=== PATIENT | male | born 1980 | race Caucasian/White ===

== ENCOUNTER 2019-08-30 19:46 | Emergency (ER) | payer MEDICAID, SELFPAY ==
[2019-08-30 19:59] VITALS: BP 177/98; PULSE 92; RESP 20; O2SAT 96
--- NOTE | 2019-08-30 20:09 | DI.RAD_ITS ---
EXAM: XR CHEST 2V PA LATERAL INDICATION: chest pain. COMPARISON: No exams were available for comparison TECHNIQUE: 2D digital imaging was performed. FINDINGS: The heart size is normal. The lungs are reasonably well inflated and clear. No infiltrate, effusio n or pneumothorax is seen. The spine appears intact as visualized. IMPRESSION: Negative chest x-ray
--- NOTE | 2019-08-30 20:09 | ED.GENADUL_ITS ---
Discharge Plan Disposition Patient Disposition: HOME Condition: Stable Discharge Details Chief Complaint: Chest Pain Clinical Impression: Chest pain Primary Care Provider: Alba Virgen ED Provider: To Swenson Discharge Instructions Instructions: Chest Pain (ED) Additional Instructions: follow up with your primary care provider this week and discuss having stress testing if you have worsening pain, pain that is constant, shortness of breath that is worsening or feel more ill return to the emergency department Medical Decision Making 39 yo male who rach chronic medical problems though doesn't see any provider regularly and nonsmoker comes in with one month of dyspnea on exertion and intermittent chest tightness, denies any pain or discomfort now. Denies fevers, chills, abd pain. HE arrives in no distress speaking in full sentences. He has no rashes, clear lungs, no muffled heart sounds and no edema. HIs heart score is 1, will obtain troponin. WElls score is low and perc negative so doubt PE. Will obtain xray to eval for pna. HAs no tearing back pain and normal vascular exam so doubt dissection pt remains asymptomatic, xray and labs unremarkable. Given his low heart score feel he is stable for d/c. HE understands he needs to f/u with his pcp and return precautions given Differential Diagnosis Differential Diagnosis: copd, cad, pneumonia Medical Records Medical records reviewed: Yes I reviewed the patient's medical records. Imaging Data Radiologic Study: Attestation: I personally reviewed and interpreted this imaging study as follows: Imaging: X-Ray Radiologist's impression: no acute findings Lab Data Lab results reviewed: Yes I reviewed the patient's lab results. ECG Data Attestation: I personally reviewed and interpreted this ECG (s) as follows: Prior ECG tracings: not available for review Interpretation: sinus rhyth, rate of 86, pr 148 HPI General Mode of arrival: ambulatory . Date/Time Provider Initiated Documentation: 08/30/19 20:05 . Limitations to Documentation: no limitations . Information obtained by: patient . History of Present Illness 39 year old M presents to the emergency department with the chief complaint of chest pain, described as moderate, and it has been intermittent. No relieving factors improve symptom(s), No exacerbating factors reported . Patient did receive the following treatments prior to arrival, none Related Data Allergies Allergy/AdvReac Type Severity Reaction Status Date / Time No Known Allergies Allergy Unverified 03/11/13 14:57 General Stated Complaint: Chest Pain LARISSA: 3 Review of Systems All systems reviewed & are unremarkable except as noted in HPI and below Constitutional Constitutional: Denies chills, Denies fever(s) and Denies weakness Respiratory Respiratory: Denies cough Gastrointestinal Gastrointestinal: Denies abdominal pain, Denies nausea and Denies vomiting Genitourinary Genitourinary: Denies dysuria Musculoskeletal Musculoskeletal: Denies joint swelling Integumentary/Breasts Skin/Breast: Denies rash Neurologic Neurologic: Denies weakness Psychiatric Psychiatric: Denies depression [facility] Social History Smoking/Tobacco Use Status: Never Substance use type: marijuana Exam Const General: no acute distress Orientation: alert HENMT Head: normal to inspection Ears: external ears normal General nose exam: external nose normal Mouth: moist mucous membranes Eyes General: appearance normal, both eyes and all related structures Neck Neck: normal visual inspection Resp Effort & Inspection: normal respiratory effort and able to speak in complete sentences Cardio Rate: regular rate Skin General skin exam: no rashes or lesions noted Neuro General: alert and oriented x3 Extrem General: normal to inspection Psych Mental Status: mental status grossly normal Course Vital Signs Vital signs: Vital Signs Pulse 92 H 08/30/19 19:59 Respiratory Rate 20 08/30/19 19:59 Blood Pressure 177/98 H 08/30/19 19:59 Pulse Oximetry 96 08/30/19 19:59 Pulse 92 H 08/30/19 19:59 Respiratory Rate 20 08/30/19 19:59 Respiratory Effort 08/30/19 20:04 Blood Pressure 177/98 H 08/30/19 19:59 Blood Pressure Position Sitting 08/30/19 19:59 Pulse Oximetry 96 08/30/19 19:59 Oxygen Delivery Method Room Air 08/30/19 19:59 Oxygen Flow Rate 0 08/30/19 19:59 Pain Level 3 08/30/19 19:59
[2019-08-30 20:12] VITALS: RESP 16
--- NOTE | 2019-08-30 20:15 | NUR.NOTE ---
Nursing Note:Lab at bedside for blood draw
[2019-08-30 20:26] LABS: Abs Immature Grans 0.02 k/cumm (0.0-0.09); Absolute Basophil Count 0.01 k/cumm (0.0-0.2); Absolute Eosinophil Count 0.13 k/cumm (0.0-0.7); Absolute Lymphocyte Count 2.38 k/cumm (1.2-3.4); Absolute Monocyte Count 0.65 k/cumm (0.11-0.7); Absolute Neutrophil Count 4.76 k/cumm (1.2-6.7); Basophils % 0.1; Eosinophils % 1.6; HCT 42.9 % (40.0-50.0); HGB 15.1 g/dL (13.5-17.5); Immature Grans % 0.3; Lymphocytes % 29.9; Mean Corp. HGB Concentration 35.2 g/dL (32.0-36.0); Mean Corpuscular Hemoglobin 31.4 pg (27.0-33.0); Mean Corpuscular Volume 89.2 fL (80-95); Monocytes % 8.2; Neutrophils % 59.9; Platelet Count 233 x1000/uL (130-400); RBC 4.81 m/cumm (4.50-6.00); RBC Distribution Width 13.1 % (11.8-14.1); White Blood Cell Count 7.95 k/cumm (4.4-10.8)
--- NOTE | 2019-08-30 20:47 | NUR.NOTE ---
Nursing Note:Patient resting in bed. No further c/o pain. Waiting lab results
[2019-08-30 20:50] LABS: ALT 52 U/L (16-63); AST 17 U/L (15-37); Alkaline Phosphatase 82 U/L (46-116); Anion Gap 9.3 mmol/L (3-11); BUN 26 mg/dL (7-18); Bilirubin, Total 0.3 mg/dL (0.2-1.0); CO2 25.7 mmol/L (21.0-32.0); CREATININE 1.15 mg/dL (0.70-1.30); Calcium 9.4 mg/dL (8.5-10.1); Chloride 105 mmol/L (98-107); Glucose 125 mg/dL (70-100); Potassium 3.9 mmol/L (3.5-5.1); Sodium 140 mmol/L (136-145); Total Protein 7.7 g/dL (6.4-8.2)
[2019-08-30 20:57] LABS: Troponin I < 0.05 ng/mL (0.00-0.06)
--- NOTE | 2019-08-30 21:31 | DI.VRAD_ITS ---
PROCEDURE INFORMATION: Exam: XR Chest, 2 Views Exam date and time: 08/30/2019 8:09 PM Clinical history: 39 years old, male; Other: Chest pain TECHNIQUE: Imaging protocol: XR of the chest Views: 2 views. COMPARISON: No relevant prior studies available. FINDINGS: The lung rosales are clear bilaterally. No focal pulmonary consolidation is present. The cardiac silhouette is within normal limits. The costophrenic angles are sharp. The bony structures appear unremarkable. IMPRESSION: No evidence of acute cardiopulmonary disease. Dictated and Authenticated by: Dennis Presley MD. Ordering:TIMOTHY Ariza MD
[2019-08-30 22:10] VITALS: BP 165/125; PULSE 87; RESP 16; O2SAT 95
== END 2019-08-30 22:15 | disposition home or self-care (01) ==
PROVIDERS: Emergency Provider Emergency Medicine; PCP Family Medicine
DX: R07.9 Chest pain, unspecified (principal)
CPT/HCPCS: 36415; 80053; 93005; 99285; 71046; 83735; 84484; 85025; 93010

== ENCOUNTER 2019-11-07 17:52 | Emergency (ER) | payer MEDICAID, SELFPAY ==
[2019-11-07 18:07] VITALS: BP 179/95; PULSE 90; RESP 16; TEMP 37; O2SAT 95
--- NOTE | 2019-11-07 18:15 | ED.GENADUL_ITS ---
Discharge Plan Disposition Patient Disposition: HOME Condition: Fair Discharge Details Chief Complaint: EyeProblem Clinical Impression: Conjunctivitis Primary Care Provider: Alba Virgen ED Provider: Charlene Blanchard Home Meds and New Rx's Prescriptions: New amoxicillin-pot clavulanate [Augmentin] 875-125 mg tablet 1 tab PO BID Qty: 12 RF: 0 Continued lisinopril 10 mg Tablet 20 mg PO DAILY RF: 0 Discharge Instructions Instructions: Amoxicillin/Clavulanate Potassium (By mouth), Erythromycin (Into the eye), Olopatadine (Into the eye), Conjunctivitis (ED) Additional Instructions: Encourage water intake. You may use warm compresses to the eye. Please wash this with baby shampoo to keep the eye clean. Please take the Augmentin as prescribed for infection. You should apply the erythromycin ointment into the left eye 5 times daily. The Patanol drops should be instilled into your eye 2 times daily. Please call your curriculum facilitator on Saturday. If you are unable to be seen by them, [place] [facility] [place] soon as possible, . If you develop fever/chills, pain, discharge or other new/worsening symptoms please seek care urgently once again. Referrals: Alba Virgen MD [Primary Care Provider] - Medical Decision Making Patient is a pleasant 39 year old male presenting today with c/c of left eye injection, swelling and itching. STates that discomfort began over the left TMJ 2 days ago. Yesterday, he noted injection and itchign to the eye. This then greatly progressed this morning. He denies any pain in the eye itself. No fevers/chills. Denies trauma. No knwn exposure. States he has been traveling recently and staying in [employer] hotels. No foreign travel. States that his vision has been slightly blurry, this sounds to be associated with tearing as it is not persistent. Does not wear contact, no eye glasses. See curriculum facilitator in [place], [place]. On exam, patient has notable injection of the left eye. The left upper lid is erythematous and swollen. No fluctuance. No pain with palpation. EOM intact. PUpils are equal, round and reactive. Chemosis is noted, particularly inferiorly. Tearing but no purulent discharge. No pain over the TMJ, full ROM. No palpable lymphadenopathy. While the patient appears nontoxic, he has fairly dramatic involvement of the left eye. I am concerned about deeper structural involvement as the pain started at the left TMJ. His exam does not have outward evidence of abscess, periorbital cellulitis, dental infection, globe trauma. He has no eye pain making diagnosis of increased ocular pressure highly unlikely. Vision 20/25. With this unusual presentation, plan for labs and imaging. Labs reviewed and no signficant abnormaliites are noted. CT reviewed b y radiologist: FINDINGS: No abnormal fluid collections. Minimal shotty cervical adenopathy. No mass identified. Bony structures intact. No significant paranasal sinus disease. IMPRESSION: No specific etiology identified for the patient's symptoms Discussed these findings with the patient. Patient was evaluated by Dr. Galicia. His symptoms are most consistent with allergic reaction versus conjunctivitis. While he does not have a large amount of purulent discharge, given the appearance of his eye I would like aggressive treatment for this patient. Will use erythromycin ointment, Patanol eyedrops as well as oral Augmentin. Patient does have a an curriculum facilitator that he sees in [facility], have asked that he call them on Saturday to schedule follow-up for that day. If he is unable to get in with them on Saturday, he [place] [facility] He was given strict return precautions. He was given first dosing of his medications, sent home with meds for this evening. All of his quesitons and concerns were addressed, he is in agreement iwth this plan. HPI General Mode of arrival: ambulatory . Date/Time Provider Initiated Documentation: 11/07/19 18:12 . Limitations to Documentation: no limitations . Information obtained by: patient and RN notes reviewed . History of Present Illness 39 year old M presents to the emergency department with the chief complaint of left eye swelling and erythema, described as moderate, with intensity rated at 1 (denies any pain, endorses itching). Quality is described as other, and is localized to the eyes. Patient reports no radiation. Patient started experiencing this day(s) (1) and it has been constant. No relieving factors improve symptom(s), No exacerbating factors reported . Patient notes rash (erythema to left upper lid); denies chest pain, cough, diaphoresis, fever/chills, headaches, nausea/vomiting and shortness of breath. Patient did receive the following treatments prior to arrival, none Related Data Home Medications Medication Instructions Recorded Confirmed amoxicillin-pot clavulanate 1 tab PO BID #12 tab 11/07/19 [Augmentin] lisinopril 20 mg PO DAILY 11/07/19 11/07/19 Previous Rx's Medication Instructions Recorded amoxicillin-pot clavulanate 1 tab PO BID #12 tab 11/07/19 [Augmentin] Allergies Allergy/AdvReac Type Severity Reaction Status Date / Time No Known Allergies Allergy Unverified 03/11/13 14:57 General Stated Complaint: EyeProblem LARISSA: 3 Review of Systems Constitutional Constitutional: Reports as per HPI, Denies chills, Denies fatigue, Denies fever(s) and Denies headache(s) Eyes Eyes: Reports as per HPI ENT Ears, Nose, Mouth, and Throat: Denies headache(s) Cardiovascular Cardiovascular: Reports as per HPI, Denies chest pain and Denies lightheadedness Respiratory Respiratory: Denies cough Integumentary/Breasts Skin/Breast: Reports as per HPI, Denies rash, Denies skin pain and Denies skin swelling Neurologic Neurologic: Denies headache(s) and Denies radicular pain Endocrine Endocrine: Denies fatigue [facility] Social History Smoking/Tobacco Use Status: Never Alcohol Intake: current Alcohol Intake frequency: a few times a month Substance use type: marijuana Do you feel safe at home: Yes Do you feel safe in your relationship?: Yes Exam Const General: cooperative, healthy appearing, comfortable, no acute distress, well developed and well groomed Nutritional Appearance: well nourished and obese Orientation: alert, awake and oriented x3 [facility]: normal to inspection, normocephalic and atraumatic Ears: hearing grossly normal bilaterally, external ears normal and TM's normal bilaterally General nose exam: external nose normal and nares normal Face and sinus: normal facial exam, sinuses nontender and face symmetric Mouth: oral mucosae normal, lip normal, tongue normal, oropharynx normal, moist mucous membranes, normal lip, No mouth trauma, no muffled voice, normal tongue, No abnormal TMJ, no trismus and No restricted motion Teeth and gingiva: dentition normal and gingiva normal Throat: posterior oropharynx normal, tonsils normal and uvula midline Eyes General: appearance abnormal, both eyes Visual Rosales: normal visual rosales by confrontation Alignment and Position: alignment normal and position normal Periorbital: periorbital findings normal Eyelids: eyelid abnormality left upper eyelid erythema and swelling; without inflamed cysts, no crusting or scaling of lid margins and nontender Conjunctivae: conjunctival abnormality left conjunctival chemosis and conjunctival injection diffuse; without discharge and without pallor Pupils: PERRL, normal by confrontation and accommodation normal EOM: EOM intact bilaterally Direct ophthalmoscopy: normal light reflex Neck Neck: normal visual inspection, no lymphadenopathy, no meningeal signs, trachea midline and supple Resp Effort & Inspection: normal respiratory effort, able to speak in complete sentences and no respiratory distress Auscultation: clear to auscultation bilaterally Cardio Rate: regular rate Rhythm: regular rhythm Heart Sounds: S1 normal and S2 normal Skin General skin exam: erythema (left upper eye lid) Neuro General: alert, awake and oriented x3 Cranial Nerves: CN's II-XI intact bilaterally Cognition: normal cognition Speech: speech normal Gait: normal gait Psych Appearance: grossly normal and well kempt Mental Status: mental status grossly normal Speech and Movement: speech and movement normal Course Vital Signs Vital signs: Vital Signs Temperature 37 C 11/07/19 18:07 Pulse 90 11/07/19 18:07 Respiratory Rate 16 11/07/19 18:07 Blood Pressure 179/95 H 11/07/19 18:07 Pulse Oximetry 95 11/07/19 18:07 Temperature 37 C 11/07/19 18:07 Temperature Source Temporal Artery Scan 11/07/19 18:07 Pulse 90 11/07/19 18:07 Respiratory Rate 16 11/07/19 18:07 Respiratory Effort 11/07/19 18:11 Blood Pressure 179/95 H 11/07/19 18:07 Blood Pressure Position Sitting 11/07/19 18:07 Pulse Oximetry 95 11/07/19 18:07 Oxygen Delivery Method Room Air 11/07/19 18:07 Oxygen Flow Rate 0 11/07/19 18:07 Pain Level 2 11/07/19 18:07
--- NOTE | 2019-11-07 18:33 | DI.CT_ITS ---
EXAM: CT FACIAL W CLINICAL HISTORY: left eye swelling with pain to side of jaw TECHNIQUE: Post IV contrast COMPARISON: No exams were available for comparison FINDINGS: There is no evidence of fracture or bony erosion. The sinuses and visualized portions of the mastoi d air cells appear clear. The globes and extraocular muscles as well as intraconal fat are unremarka ble. There is soft tissue swelling of the left eyelid. The visualized portions of the parotid and s ubmandibular glands as well as visualized portions of the brain are unremarkable. IMPRESSION: Soft tissue swelling around the left orbit. No drainable abscess or bony abnormality.
[2019-11-07 18:45] LABS: Abs Immature Grans 0.01 k/cumm (0.0-0.09); Absolute Basophil Count 0.01 k/cumm (0.0-0.2); Absolute Eosinophil Count 0.12 k/cumm (0.0-0.7); Absolute Lymphocyte Count 1.65 k/cumm (1.2-3.4); Absolute Monocyte Count 0.68 k/cumm (0.11-0.7); Absolute Neutrophil Count 3.38 k/cumm (1.2-6.7); Basophils % 0.2; Eosinophils % 2.1; HCT 42.1 % (40.0-50.0); HGB 14.8 g/dL (13.5-17.5); Immature Grans % 0.2 %; Lymphocytes % 28.2; Mean Corp. HGB Concentration 35.2 g/dL (32.0-36.0); Mean Corpuscular Hemoglobin 31.3 pg (27.0-33.0); Mean Platelet Volume 10.8 fL (8.0-11.0); Monocytes % 11.6; Neutrophils % 57.7; Platelet Count 192 x1000/uL (130-400); RBC 4.73 m/cumm (4.50-6.00); White Blood Cell Count 5.85 k/cumm (4.4-10.8)
[2019-11-07] MEDS: Amoxicillin 875/Clav. 125 TAB PO ×2 (18:46→19:57)
[2019-11-07] MEDS: Erythromycin Ophth Oint 3.5 GM TUBE OS (18:46)
[2019-11-07 18:59] LABS: ALT 60 U/L (16-63); AST 20 U/L (15-37); Albumin 3.6 g/dL (3.4-5.0); Alkaline Phosphatase 88 U/L (46-116); Anion Gap 6.8 mmol/L (3-11); BUN 19 mg/dL (7-18); Bilirubin, Total 0.4 mg/dL (0.2-1.0); CO2 28.2 mmol/L (21.0-32.0); CREATININE 0.99 mg/dL (0.70-1.30); Calcium 8.6 mg/dL (8.5-10.1); Chloride 102 mmol/L (98-107); Glucose 165 mg/dL (74-106); Potassium 3.5 mmol/L (3.5-5.1); Sodium 137 mmol/L (136-145); Total Protein 7.2 g/dL (6.4-8.2)
[2019-11-07] MEDS: Omnipaque 350 MG/ML 100 ML BTL IJ (19:03)
[2019-11-07] MEDS: Olopatadine 0.1% OPHTH SOL 5 ML BTL OU (19:12)
--- NOTE | 2019-11-07 19:39 | DI.VRAD_ITS ---
PROCEDURE INFORMATION: Exam: CT Maxillofacial With Contrast Exam date and time: 11/07/2019 6:33 PM Age: 39 years old Clinical indication: Mass, lump, or swelling; Other: Swelling to side of jaw; Eye pain; Patient HX: Left eye swelling with pain to side of jaw TECHNIQUE: Imaging protocol: Computed tomography images of the face with intravenous contrast. COMPARISON: No relevant prior studies available. FINDINGS: No abnormal fluid collections. Minimal shotty cervical adenopathy. No mass identified. Bony structures intact. No significant paranasal sinus disease. IMPRESSION: No specific etiology identified for the patient's symptoms. Dictated and Authenticated by: Dennis Presley MD. Ordering:MANDO Chang MD
== END 2019-11-07 20:20 | disposition home or self-care (01) ==
PROVIDERS: Emergency Provider Physician Assistant; PCP Family Medicine
DX: H10.32 Unspecified acute conjunctivitis, left eye (principal); M26.622 Arthralgia of left temporomandibular joint
CPT/HCPCS: 80053; 99285; 70487; 85025; 99284; J3490

== ENCOUNTER 2020-09-20 03:50 | Outpatient (CLI) | payer MEDICAID, SELFPAY ==
[2020-09-23 19:02] LABS: COVID-19 RT-PCR Result NEGATIVE (Negative)
== END 2020-09-20 04:10 ==
PROVIDERS: PCP Family Medicine; Visit Provider Naturopath
DX: R06.02 Shortness of breath (principal); M79.10 Myalgia, unspecified site; R51.9 Headache, unspecified
CPT/HCPCS: U0003